=== PATIENT | female | born 1990 | race Caucasian/White ===

== ENCOUNTER → 2018-05-17 | Outpatient (REF) | payer OTHER | LOC: M SFHCLERA 11:02 | PROVIDERS: ATTEND Nurse Practitioner Family | DX: J02.9 Acute pharyngitis, unspecified (principal) ==

== ENCOUNTER → 2020-04-28 | Outpatient (CLI) | payer MEDICAID | LOC: M OUTALCOH 10:29 | PROVIDERS: ATTEND Psychiatry & Neurology Addiction Medicine | DX: F10.20 Alcohol dependence, uncomplicated (principal) ==

== ENCOUNTER → 2020-06-16 | Outpatient (CLI) | payer MEDICAID | LOC: M OUTALCOH 08:32 | PROVIDERS: ATTEND Psychiatry & Neurology Psychiatry | DX: F10.20 Alcohol dependence, uncomplicated (principal) ==

== ENCOUNTER 2020-07-14 08:00 | Outpatient (RCR) | payer MEDICAID | END 2020-07-16 | LOC: M OUTALCOH 08:00 | PROVIDERS: ATTEND Psychiatry & Neurology Psychiatry | DX: F10.20 Alcohol dependence, uncomplicated (principal) ==

== ENCOUNTER 2020-07-31 19:31 | Emergency (ER) | payer MEDICAID, OTHER ==
[~2020-07-31] VITALS: Ht 154.9 cm; Wt 90.9 kg
[2020-07-31] MEDS ORDERED: BUPR150T12 PO (20:55)
[2020-07-31] MEDS ORDERED: GABA-282 PO (20:59)
[2020-07-31] MEDS ORDERED: SERO200T PO (20:59)
[2020-07-31] MEDS ORDERED: LEXA1TAB2 PO (20:59)
[2020-07-31] MEDS ORDERED: VIVI380I IM (20:59)
[2020-07-31] MEDS ORDERED: AMBI10TA PO (20:59)
[2020-07-31] MEDS ORDERED: NALT50TA4 PO (20:59)
--- NOTE | 2020-07-31 22:25 | ECGEPIP ---
[facility] - ED Test Date: 2020-07-31 Pat Name: CORY LAI Department: Room: - Gender: Female [employer] Announcer: linda jones : 1990 Requested By: HENRY CORONA Order Number: [id number] Reading MD: Ashish Duran Measurements Intervals [place] Rate: 58 P: 41 [place]: 170 QRS: 53 QRSD: 82 T: 40 QT: 436 QTc: 428 Interpretive Statements Sinus bradycardia Comparison tracing not on file Electronically Signed on 07-31-2020 22:25:16 EDT by Ashish Duran
[2020-07-31 22:27] LABS: HEMOGLOBIN 9.8 g/dl (12.0-15.5); MEAN CORPUSCULAR HEMOGLOBIN 23.2 pg (27.0-33.0); MEAN CORPUSCULAR HGB CONC 29.7 g/dl (32.0-36.5); MEAN CORPUSCULAR VOLUME 78.2 fl (80.0-96.0); PLATELET COUNT, AUTOMATED 404 10^3/uL (150-450); RED BLOOD COUNT 4.22 10^6/uL (4.00-5.40); WHITE BLOOD COUNT 5.6 10^3/uL (4.0-10.0)
[2020-07-31 22:50] LABS: AMPHETAMINES LEVEL URINE POSITIVE (NEGATIVE); BARBITURATES URINE POSITIVE (NEGATIVE); BENZODIAZEPINES URINE NEGATIVE (NEGATIVE); CANNABINOIDS URINE NEGATIVE (NEGATIVE); COCAINE METABOLITE URINE NEGATIVE (NEGATIVE); METHADONE URINE NEGATIVE (NEGATIVE); OPIATES URINE NEGATIVE (NEGATIVE); PHENCYCLIDINE URINE NEGATIVE (NEGATIVE)
[2020-07-31 23:08] LABS: ACETAMINOPHEN LEVEL < 2.0 UG/ML (10.0-30.0); ALBUMIN 3.8 GM/DL (3.2-5.2); ALT/SGPT 31 U/L (12-78); BILIRUBIN,DIRECT < 0.1 MG/DL (0.0-0.2); BILIRUBIN,TOTAL 0.2 MG/DL (0.2-1.0); BLOOD UREA NITROGEN 8 MG/DL (7-18); CALCIUM LEVEL 8.7 MG/DL (8.5-10.1); CARBON DIOXIDE LEVEL 30 MEQ/L (21-32); CHLORIDE LEVEL 107 MEQ/L (98-107); CREATININE FOR GFR 0.73 MG/DL (0.55-1.30); ETHYL ALCOHOL (ETHANOL) < 0.003 % (0.000-0.010); GLOMERULAR FILTRATION RATE > 60.0 (>60); GLUCOSE, FASTING 88 MG/DL (70-100); POTASSIUM SERUM 4.2 MEQ/L (3.5-5.1); SALICYLATE LEVEL < 1.7 MG/DL (5.0-30.0); SODIUM LEVEL 142 MEQ/L (136-145); TOTAL PROTEIN 6.9 GM/DL (6.4-8.2)
[2020-08-01 00:31] LABS: RSV AMPLIFICATION NEGATIVE (NEGATIVE)
[2020-08-01] MEDS ORDERED: QUEtiapine FUMARATE 200 MG TAB PO ONE (01:05)
[2020-08-01] MEDS ORDERED: ESCITALOPRAM OXALATE 10 MG TAB (LEXAPRO) PO ONE (01:05)
[2020-08-01 02:01] LABS: HCG, SERUM QUALITATIVE NEGATIVE (NEGATIVE)
[2020-08-01 02:48] VITALS: BP 118/62
== END 2020-08-01 02:55 | disposition short-term general hospital (02) ==
LOC: M ED 19:31
DX: F32.9 Major depressive disorder, single episode, unspecified (principal); R45.851 Suicidal ideations; R00.1 Bradycardia, unspecified; F41.9 Anxiety disorder, unspecified; F19.10 Other psychoactive substance abuse, uncomplicated; Z98.84 Bariatric surgery status; Z88.1 Allergy status to other antibiotic agents

== ENCOUNTER → 2020-08-10 | Outpatient (CLI) | payer MEDICAID ==
[~2020-08-10] MED LIST: AMBI10TA PO; BUPR150T12 PO; GABA-282 PO; LEXA1TAB2 PO; NALT50TA4 PO; SERO200T PO; VIVI380I IM
[2020-08-10 14:13] LABS: BASO # 0.1 10^3/uL (0.0-0.2); BASO % 1.1 % (0.0-1.0); EOS # 0.3 10^3/uL (0.0-0.5); EOS % 5.8 % (0.0-3.0); HEMATOCRIT 33.7 % (36.0-47.0); HEMOGLOBIN 9.8 g/dl (12.0-15.5); LYMPH # 1.5 10^3/uL (1.5-5.0); LYMPH % 32.2 % (24.0-44.0); MEAN CORPUSCULAR HEMOGLOBIN 22.8 pg (27.0-33.0); MEAN CORPUSCULAR HGB CONC 29.1 g/dl (32.0-36.5); MEAN CORPUSCULAR VOLUME 78.4 fl (80.0-96.0); MONO # 0.4 10^3/uL (0.0-0.8); MONO % 9.4 % (2.0-8.0); NEUTROPHILS # 2.4 10^3/uL (1.5-8.5); NEUTROPHILS % 51.3 % (36.0-66.0); PLATELET COUNT, AUTOMATED 349 10^3/uL (150-450); WHITE BLOOD COUNT 4.7 10^3/uL (4.0-10.0)
[2020-08-10 14:45] LABS: HCG, SERUM QUALITATIVE NEGATIVE (NEGATIVE)
[2020-08-10 14:49] LABS: ALBUMIN 3.9 GM/DL (3.2-5.2); ALT/SGPT 54 U/L (12-78); BILIRUBIN,DIRECT < 0.1 MG/DL (0.0-0.2); BILIRUBIN,TOTAL 0.2 MG/DL (0.2-1.0); BLOOD UREA NITROGEN 13 MG/DL (7-18); CALCIUM LEVEL 9.2 MG/DL (8.5-10.1); CARBON DIOXIDE LEVEL 26 MEQ/L (21-32); CHLORIDE LEVEL 107 MEQ/L (98-107); CHOLESTEROL LEVEL 218 MG/DL (<200); CHOLESTEROL RISK RATIO 3.694 (<5); CREATININE FOR GFR 0.88 MG/DL (0.55-1.30); GLOMERULAR FILTRATION RATE > 60.0 (>60); GLUCOSE, FASTING 126 MG/DL (70-100); HDL CHOLESTEROL 59 MG/DL (>40); LDL CHOLESTEROL 126 MG/DL (<100); NON-HDL-C 159 MG/DL; POTASSIUM SERUM 4.1 MEQ/L (3.5-5.1); SODIUM LEVEL 138 MEQ/L (136-145); TOTAL PROTEIN 6.9 GM/DL (6.4-8.2); TRIGLYCERIDES LEVEL 164 MG/DL (<150)
== END ==
LOC: M PLALAB 11:07
PROVIDERS: ATTEND Psychiatry & Neurology Psychiatry
DX: F10.20 Alcohol dependence, uncomplicated (principal)

== ENCOUNTER 2020-08-14 13:00 | Outpatient (RCR) | payer MEDICAID | END 2020-08-16 | LOC: M OUTALCOH 13:00 | PROVIDERS: ATTEND Psychiatry & Neurology Psychiatry | DX: F10.20 Alcohol dependence, uncomplicated (principal) ==

== ENCOUNTER 2020-09-14 09:00 | Outpatient (RCR) | payer MEDICAID | END 2020-09-15 | LOC: M OUTALCOH 09:00 | PROVIDERS: ATTEND Psychiatry & Neurology Psychiatry | DX: F10.20 Alcohol dependence, uncomplicated (principal) ==

== ENCOUNTER 2020-10-05 08:45 | Outpatient (RCR) | payer MEDICAID | END 2020-10-16 | LOC: M OUTALCOH 08:45 | PROVIDERS: ATTEND Psychiatry & Neurology Psychiatry | DX: F10.20 Alcohol dependence, uncomplicated (principal) ==

== ENCOUNTER 2020-11-08 14:53 | Outpatient (RCR) | payer MEDICAID | END 2020-11-15 | LOC: M OUTALCOH 14:53 | PROVIDERS: ATTEND Psychiatry & Neurology Psychiatry | DX: F10.20 Alcohol dependence, uncomplicated (principal) ==

== ENCOUNTER 2020-12-09 11:55 | Emergency (ER) | payer MEDICAID ==
[~2020-12-09] VITALS: Ht 154.9 cm; Wt 90.9 kg
[2020-12-09] MEDS ORDERED: LIDVISCBTL TOP ×2 (13:04→13:23)
[2020-12-09] MEDS ORDERED: ACET-683 PO ×2 (13:04→13:23)
[2020-12-09] MEDS ORDERED: IBUP-1022 PO ×2 (13:04→13:23)
[2020-12-09 13:33] VITALS: BP 112/75
== END 2020-12-09 13:33 | disposition home or self-care (01) ==
LOC: M ED 11:55
DX: K02.9 Dental caries, unspecified (principal); K08.89 Other specified disorders of teeth and supporting structures; Z79.899 Other long term (current) drug therapy; Z88.1 Allergy status to other antibiotic agents

== ENCOUNTER 2020-12-13 15:46 | Outpatient (RCR) | payer MEDICAID ==
[~2020-12-13 15:46] MED LIST changes: +ACET-683 PO; +IBUP-1022 PO; +LIDVISCBTL TOP
== END 2020-12-16 ==
LOC: M OUTALCOH 15:46
PROVIDERS: ATTEND Psychiatry & Neurology Psychiatry
DX: F10.20 Alcohol dependence, uncomplicated (principal)

== ENCOUNTER → 2021-09-12 | Outpatient (CLI) | payer MEDICAID, OTHER ==
[~2021-09-12] MED LIST changes: +LAMO100T3; +METO50TA7
== END ==
LOC: M LABSMTC 09:47
PROVIDERS: ATTEND Anesthesiology
DX: Z01.818 Encounter for other preprocedural examination (principal); Z11.52 Encounter for screening for COVID-19

== ENCOUNTER 2021-09-17 06:06 | Day surgery (SDC) | payer OTHER ==
[~2021-09-17] VITALS: Ht 154.9 cm; Wt 93.3 kg
[~2021-09-17 06:06] MED LIST changes: +CLINDAMYCIN 900 MG in IV 1 EA IV ONE; +LIDOCAINE 1% MDV 20ML VIAL SQ PRN; +LR 1,000 ML IV ONE; +dexameTHASONE 4 MG/ML 1ML VIAL (J1100 PER 1MG) IV ONE
[2021-09-17] MEDS ORDERED: CLINDAMYCIN 900 MG in IV 1 EA IV ONE (07:05)
[2021-09-17] MEDS ORDERED: PHENYLEPHRINE 0.5% NASAL SPRAY 15 ML As Ordered ONE (07:11)
[2021-09-17] MEDS ORDERED: MIDAZOLAM INJ 2MG/2ML VIAL (J2250 PER 1MG) As Ordered ONE (07:13)
[2021-09-17] MEDS ORDERED: fentaNYL 250 MCG/5 ML INJECTION As Ordered ONE (07:13)
[2021-09-17] MEDS ORDERED: propofoL 200 MG/20 ML VIAL As Ordered ONE (07:13)
[2021-09-17] MEDS ORDERED: ROCURONIUM BROMIDE 50 MG/5 ML VIAL As Ordered ONE (07:13)
[2021-09-17] MEDS ORDERED: LIDOCAINE 2% 100MG/5ML SDV (FOR ANES.) As Ordered ONE (07:13)
[2021-09-17] MEDS ORDERED: LIDOCAINE 2% W/ EPINEPHRINE 1.7 ML DENTAL INJ As Ordered ONE (07:14)
[2021-09-17] MEDS ORDERED: SCOPOLAMINE 1MG TRANSDERMAL PATCH TOP ONE (07:20)
[2021-09-17] MEDS ORDERED: LIDOCAINE 2% JELLY 5ML TUBE As Ordered ONE (07:26)
[2021-09-17] MEDS ORDERED: PHENYLephrine 500MCG 5ML (100MCG/ML) SYRINGE As Ordered ONE (07:45)
[2021-09-17] MEDS ORDERED: ACETAMINOPHEN 1000MG 100ML IV BTL (OFIRMEV) (J0131 PER 10MG) As Ordered ONE (07:50)
[2021-09-17] MEDS ORDERED: METOCLOPRAMIDE INJ 10MG/2ML VIAL (J2765 PER 1) As Ordered ONE (07:52)
[2021-09-17] MEDS ORDERED: SUGAMMADEX SODIUM 500 MG/5 ML VIAL (BRIDION) As Ordered ONE ×2 (07:52→07:53)
[2021-09-17] MEDS ORDERED: ONDANSETRON 4MG/2ML VIAL As Ordered ONE (07:52)
[2021-09-17] MEDS ORDERED: ePHEDrine SULFATE 25 MG/5 ML(5MG/ML) SYRINGE As Ordered ONE (08:11)
[2021-09-17] MEDS ORDERED: LR 1,000 ML IV SCH (08:55)
[2021-09-17] MEDS ORDERED: PERCOCET 5MG/325MG TAB PO PRN (08:55)
[2021-09-17] MEDS ORDERED: ONDANSETRON 4MG/2ML VIAL IV PRN (08:55)
[2021-09-17] MEDS: fentaNYL 100 MCG/2 ML INJECTION IV PRN ×2 (09:04→09:11)
[2021-09-17 10:24] VITALS: BP 103/68
== END 2021-09-17 10:43 | disposition home or self-care (01) ==
LOC: M SDC 06:06
PROVIDERS: ATTEND Dentist
DX: K02.9 Dental caries, unspecified (principal); I49.5 Sick sinus syndrome; J45.909 Unspecified asthma, uncomplicated; G43.909 Migraine, unspecified, not intractable, without status migrainosus; Z98.84 Bariatric surgery status; E66.9 Obesity, unspecified; Z91.010 Allergy to peanuts; Z88.1 Allergy status to other antibiotic agents; Z79.899 Other long term (current) drug therapy; F41.9 Anxiety disorder, unspecified; F32.9 Major depressive disorder, single episode, unspecified; Z92.21 Personal history of antineoplastic chemotherapy; Z95.0 Presence of cardiac pacemaker
CPT/HCPCS: 81025; 88300; D7210; D9223; J0131; J1100; J2250; J2370; J2405; J2765; J3010

== ENCOUNTER 2022-02-19 00:47 | Emergency (ER) | payer OTHER ==
[~2022-02-19] VITALS: Ht 154.9 cm; Wt 97.9 kg
[~2022-02-19 00:47] MED LIST changes: -CLINDAMYCIN 900 MG in IV 1 EA IV ONE; -LIDOCAINE 1% MDV 20ML VIAL SQ PRN; -LR 1,000 ML IV ONE; -dexameTHASONE 4 MG/ML 1ML VIAL (J1100 PER 1MG) IV ONE
[2022-02-19] MEDS ORDERED: HYDROMORPHONE HCL 0.5 MG/ 0.5 ML SYRINGE (J1170 PER 1) IV PRN (01:40)
[2022-02-19] MEDS ORDERED: ISOVUE-370 76% 100ML VIAL As Ordered ONE (01:44)
[2022-02-19 01:52] VITALS: BP 141/85
[2022-02-19 02:06] LABS: HEMATOCRIT 31.8 % (36.0-47.0); HEMOGLOBIN 9.6 g/dl (12.0-15.5); LYMPH % 21.6 % (24.0-44.0); MEAN CORPUSCULAR HEMOGLOBIN 24.2 pg (27.0-33.0); MEAN CORPUSCULAR HGB CONC 30.2 g/dl (32.0-36.5); MEAN CORPUSCULAR VOLUME 80.3 fl (80.0-96.0); NEUTROPHILS % 69.9 % (36.0-66.0); PLATELET COUNT, AUTOMATED 347 10^3/uL (150-450); RED BLOOD COUNT 3.96 10^6/uL (4.00-5.40); WHITE BLOOD COUNT 7.1 10^3/uL (4.0-10.0)
[2022-02-19 02:07] LABS: BASO # 0.1 10^3/uL (0.0-0.2); BASO % 0.7 % (0.0-1.0); EOS # 0.1 10^3/uL (0.0-0.5); LYMPH # 1.5 10^3/uL (1.5-5.0); MONO # 0.4 10^3/uL (0.0-0.8); MONO % 5.5 % (2.0-8.0); NEUTROPHILS # 4.9 10^3/uL (1.5-8.5)
[2022-02-19 02:42] LABS: RSV AMPLIFICATION NEGATIVE (NEGATIVE)
[2022-02-19 02:49] LABS: INR 0.97; PROTHROMBIN TIME 13.3 SECONDS (12.7-14.5)
[2022-02-19 02:57] LABS: ALBUMIN 3.3 GM/DL (3.2-5.2); ALT/SGPT 38 U/L (12-78); AMYLASE 73 U/L (25-115); BILIRUBIN,DIRECT < 0.1 MG/DL (0.0-0.2); BILIRUBIN,TOTAL 0.2 MG/DL (0.2-1.0); BLOOD UREA NITROGEN 13 MG/DL (7-18); CALCIUM LEVEL 8.2 MG/DL (8.5-10.1); CARBON DIOXIDE LEVEL 25 MEQ/L (21-32); CHLORIDE LEVEL 109 MEQ/L (98-107); ETHYL ALCOHOL (ETHANOL) 0.084 % (0.000-0.010); GLOMERULAR FILTRATION RATE > 60.0 (>60); GLUCOSE, FASTING 105 MG/DL (70-100); LIPASE 119 U/L (73-393); POTASSIUM SERUM 3.9 MEQ/L (3.5-5.1); SODIUM LEVEL 140 MEQ/L (136-145); TOTAL PROTEIN 6.6 GM/DL (6.4-8.2)
[2022-02-19 02:59] LABS: CK-MB VALUE MASS < 1.0 NG/ML (<3.6); CPK CREATINE PHOSPHOKINASE 79 U/L (26-192); MB/CK RELATIVE INDEX 1.27 (< OR =4)
[2022-02-19] MEDS ORDERED: OXYCODONE/APAP 5MG/325MG(HOME DOSE PACK) PO ONE (04:15)
== END 2022-02-19 06:17 | disposition home or self-care (01) ==
LOC: M ED 00:47 → EDBD 00:47 → M ED 06:17
DX: S42.002A Fracture of unspecified part of left clavicle, initial encounter for closed fracture (principal); V48.5XXA Car driver injured in noncollision transport accident in traffic accident, initial encounter; Z95.0 Presence of cardiac pacemaker; Z98.84 Bariatric surgery status; I48.91 Unspecified atrial fibrillation; I10 Essential (primary) hypertension; Z79.899 Other long term (current) drug therapy; Z88.8 Allergy status to other drugs, medicaments and biological substances; Z91.010 Allergy to peanuts
CPT/HCPCS: 70450; 70486; 71045; 71260; 72125; 73030; 74177; 80047; 80048; 80076; 82077; 82150; 82550; 82553; 83605; 83690; 84484; 84702; 85025; 85610; 85730; 86850; 86900; 86901; 87631; 93005; 93041; 94760; 96374; 99285; J1170; Q9967

== ENCOUNTER 2022-05-02 19:51 | Inpatient (IN) | payer MEDICAID, OTHER ==
[~2022-05-02] VITALS: Ht 154.9 cm; Wt 100.0 kg
[~2022-05-02 19:51] MED LIST changes: -METO50TA7; +METO50TA7 PO
[2022-05-02 20:38] LABS: HEMATOCRIT 35.8 % (36.0-47.0); HEMOGLOBIN 11.2 g/dl (12.0-15.5); MEAN CORPUSCULAR HEMOGLOBIN 24.8 pg (27.0-33.0); MEAN CORPUSCULAR HGB CONC 31.3 g/dl (32.0-36.5); MEAN CORPUSCULAR VOLUME 79.2 fl (80.0-96.0); PLATELET COUNT, AUTOMATED 346 10^3/uL (150-450); RED BLOOD COUNT 4.52 10^6/uL (4.00-5.40); WHITE BLOOD COUNT 6.3 10^3/uL (4.0-10.0)
[2022-05-02 21:00] LABS: AMPHETAMINES LEVEL URINE NEGATIVE (NEGATIVE); BARBITURATES URINE NEGATIVE (NEGATIVE); BENZODIAZEPINES URINE NEGATIVE (NEGATIVE); CANNABINOIDS URINE NEGATIVE (NEGATIVE); COCAINE METABOLITE URINE NEGATIVE (NEGATIVE); METHADONE URINE NEGATIVE (NEGATIVE); OPIATES URINE NEGATIVE (NEGATIVE); PHENCYCLIDINE URINE NEGATIVE (NEGATIVE)
[2022-05-02 21:02] LABS: ETHYL ALCOHOL (ETHANOL) 0.208 % (0.000-0.010)
[2022-05-02 21:03] LABS: ACETAMINOPHEN LEVEL < 2.0 UG/ML (10.0-20.0)
[2022-05-02 21:04] LABS: ALBUMIN 3.5 G/DL (3.2-5.2); ALKALINE PHOSPHATASE 135 U/L (46-116); ALT/SGPT 10 U/L (7.0-40); AST/SGOT 19 U/L (<34); BILIRUBIN,DIRECT < 0.1 MG/DL (<0.4); BILIRUBIN,TOTAL 0.2 MG/DL (0.3-1.2); BLOOD UREA NITROGEN 11 MG/DL (9-23); CARBON DIOXIDE LEVEL 20 MMOL/L (20-31); CHLORIDE LEVEL 109 MMOL/L (98-107); CREATININE FOR GFR 0.93 MG/DL (0.55-1.30); GLOMERULAR FILTRATION RATE > 60.0 (>60); GLUCOSE, FASTING 103 MG/DL (60-100); POTASSIUM SERUM 4.2 MMOL/L (3.5-5.1); SALICYLATE LEVEL < 3.0 MG/DL (<30); SODIUM LEVEL 141 MMOL/L (136-145); TOTAL PROTEIN 7.1 G/DL (5.7-8.2)
[2022-05-02 21:06] LABS: THYROID STIMULATING HORMONE 3.242 uIU/ML (0.55-4.78)
[2022-05-02 21:15] LABS: RSV AMPLIFICATION NEGATIVE (NEGATIVE)
[2022-05-02] MEDS ORDERED: ACETAMINOPHEN TAB 650MG DOSE (2X325MG) PO ONE (23:05)
[2022-05-03] MEDS ORDERED: TIZA10TA PO (09:16)
[2022-05-03] MEDS ORDERED: PRAZ1CAP PO (09:16)
[2022-05-03] MEDS ORDERED: BUSP15TA47 PO (09:16)
[2022-05-03] MEDS ORDERED: QUET200T2 PO (09:16)
[2022-05-03] MEDS ORDERED: HOME MED LIST COMPLETE! XX SCH (09:20)
[2022-05-03] MEDS ORDERED: MAALOX 30 ML SUSP *UDC PO PRN (09:30)
[2022-05-03] MEDS ORDERED: ACETAMINOPHEN TAB 650MG DOSE (2X325MG) PO PRN (09:30)
[2022-05-03] MEDS ORDERED: MOM 30ML SUSPENSION UDC PO PRN (09:30)
[2022-05-03] MEDS ORDERED: tiZANidine 4 MG TAB PO PRN (14:45)
[2022-05-03] MEDS: EXCEDRIN MIGRAINE TABLET PO PRN (15:22)
[2022-05-03] MEDS: METOPROLOL TART 50 MG TAB PO SCH (20:14)
[2022-05-03] MEDS: PRAZOSIN 1 MG CAP PO SCH (20:14)
[2022-05-03] MEDS: traZODone 50 MG TAB PO PRN (20:14)
[2022-05-03] MEDS: busPIRone 5 MG TAB PO SCH (20:14)
[2022-05-03] MEDS ORDERED: QUEtiapine FUMARATE 200 MG TAB PO SCH (21:00)
[2022-05-04 06:30] VITALS: BP 113/58
[2022-05-04 06:39] VITALS: BP 113/58
[2022-05-04] MEDS: METOPROLOL TART 50 MG TAB PO SCH ×2 (08:00→20:36)
[2022-05-04] MEDS: EXCEDRIN MIGRAINE TABLET PO PRN ×2 (08:00→18:06)
[2022-05-04] MEDS: busPIRone 5 MG TAB PO SCH ×2 (08:00→20:36)
[2022-05-04] MEDS ORDERED: INFLUENZA QUADRIVALENT PF VACCINE 0.5ML SYRINGE IM.IMMUN ONE (10:00)
[2022-05-04] MEDS ORDERED: diazePAM 2 MG TAB PO PRN (12:25)
[2022-05-04 14:00] VITALS: BP 122/77
[2022-05-04] MEDS ORDERED: LORazepam 2 MG TAB PO PRN (14:00)
[2022-05-04] MEDS: MULTIVITAMINS/MINERALS THERAP 1 TAB PO SCH (15:18)
[2022-05-04] MEDS: FOLIC ACID 1MG TAB PO SCH (15:18)
[2022-05-04] MEDS: ARIPiprazole 2 MG TAB PO SCH (15:18)
[2022-05-04 18:23] VITALS: BP 122/77
[2022-05-04] MEDS: THIAMINE 100 MG TAB PO SCH (20:36)
[2022-05-04] MEDS: NALTREXONE 50 MG TAB PO SCH (20:36)
[2022-05-04 20:55] VITALS: BP 128/80
[2022-05-04] MEDS: PRAZOSIN 1 MG CAP PO SCH (21:11)
[2022-05-04] MEDS: QUEtiapine FUMARATE 100 MG TAB PO SCH (21:11)
[2022-05-04] MEDS: MIRTAZAPINE 15 MG TAB PO SCH (21:11)
[2022-05-05 03:00] VITALS: BP 112/64
[2022-05-05] MEDS: FOLIC ACID 1MG TAB PO SCH (08:26)
[2022-05-05] MEDS: MULTIVITAMINS/MINERALS THERAP 1 TAB PO SCH (08:26)
[2022-05-05] MEDS: THIAMINE 100 MG TAB PO SCH (08:26)
[2022-05-05] MEDS: ARIPiprazole 2 MG TAB PO SCH (08:26)
[2022-05-05] MEDS: busPIRone 5 MG TAB PO SCH ×2 (08:27→21:26)
[2022-05-05] MEDS: METOPROLOL TART 50 MG TAB PO SCH ×2 (08:29→21:25)
[2022-05-05 09:12] LABS: CHOLESTEROL RISK RATIO 2.96 (<5); LDL CHOLESTEROL 88.2 MG/DL (<100)
[2022-05-05 09:30] LABS: HEMOGLOBIN A1c 4.9 % (4.0-6.0)
[2022-05-05] MEDS: FIORICET TAB PO PRN ×2 (13:13→21:25)
[2022-05-05 14:00] VITALS: BP 118/72
[2022-05-05 18:01] VITALS: BP 120/75
[2022-05-05] MEDS: PRAZOSIN 1 MG CAP PO SCH (21:24)
[2022-05-05] MEDS: MIRTAZAPINE 15 MG TAB PO SCH (21:24)
[2022-05-05] MEDS: NALTREXONE 50 MG TAB PO SCH (21:25)
[2022-05-05] MEDS: QUEtiapine FUMARATE 100 MG TAB PO SCH (21:54)
[2022-05-05] MEDS: traZODone 50 MG TAB PO PRN (21:54)
[2022-05-06 06:41] VITALS: BP 122/55
[2022-05-06] MEDS: FOLIC ACID 1MG TAB PO SCH (08:29)
[2022-05-06] MEDS: METOPROLOL TART 50 MG TAB PO SCH ×2 (08:29→21:30)
[2022-05-06] MEDS: MULTIVITAMINS/MINERALS THERAP 1 TAB PO SCH (08:29)
[2022-05-06] MEDS: ARIPiprazole 2 MG TAB PO SCH (08:29)
[2022-05-06] MEDS: busPIRone 5 MG TAB PO SCH ×2 (08:30→21:30)
[2022-05-06 16:09] VITALS: BP 133/74
[2022-05-06] MEDS: NALTREXONE 50 MG TAB PO SCH (21:29)
[2022-05-06] MEDS: QUEtiapine FUMARATE 100 MG TAB PO SCH (23:28)
[2022-05-06] MEDS: PRAZOSIN 1 MG CAP PO SCH (23:28)
[2022-05-06] MEDS: MIRTAZAPINE 15 MG TAB PO SCH (23:28)
[2022-05-06] MEDS: traZODone 50 MG TAB PO PRN (23:29)
[2022-05-07 06:18] VITALS: BP 110/56
[2022-05-07] MEDS: METOPROLOL TART 50 MG TAB PO SCH ×2 (09:08→21:36)
[2022-05-07] MEDS: FOLIC ACID 1MG TAB PO SCH (09:08)
[2022-05-07] MEDS: busPIRone 5 MG TAB PO SCH ×2 (09:08→21:35)
[2022-05-07] MEDS: MULTIVITAMINS/MINERALS THERAP 1 TAB PO SCH (09:08)
[2022-05-07 16:37] VITALS: BP 133/88
[2022-05-07] MEDS: FIORICET TAB PO PRN (17:30)
[2022-05-07] MEDS: NALTREXONE 50 MG TAB PO SCH (21:35)
[2022-05-07] MEDS: PRAZOSIN 1 MG CAP PO SCH (23:03)
[2022-05-07] MEDS: traZODone 50 MG TAB PO PRN (23:03)
[2022-05-07] MEDS: MIRTAZAPINE 15 MG TAB PO SCH (23:03)
[2022-05-08 06:35] VITALS: BP 129/56
[2022-05-08 08:31] VITALS: BP 128/72
[2022-05-08] MEDS: MULTIVITAMINS/MINERALS THERAP 1 TAB PO SCH (08:31)
[2022-05-08] MEDS: METOPROLOL TART 50 MG TAB PO SCH (08:31)
[2022-05-08] MEDS: FOLIC ACID 1MG TAB PO SCH (08:31)
[2022-05-08] MEDS: busPIRone 5 MG TAB PO SCH (08:31)
[2022-05-08] MEDS ORDERED: TRAZ-252 PO (10:11)
[2022-05-08] MEDS ORDERED: ABIL1TAB11 PO (10:11)
[2022-05-08] MEDS ORDERED: BUTA-198 PO (10:11)
[2022-05-08] MEDS ORDERED: MIRT-10 PO (10:11)
[2022-05-08] MEDS ORDERED: VITMTA PO (10:11)
[2022-05-08] MEDS ORDERED: NALT50TA4 PO (10:11)
== END 2022-05-08 13:00 | disposition home or self-care (01) | DRG 751 ==
LOC: M ED 19:51 → M ED INP 05-03 09:29 → M PSY 05-03 13:40
PROVIDERS: ADMIT Psychiatry & Neurology Psychiatry; ATTEND Psychiatry & Neurology Psychiatry
DX: F33.1 Major depressive disorder, recurrent, moderate (principal); F10.20 Alcohol dependence, uncomplicated; F60.3 Borderline personality disorder; G43.909 Migraine, unspecified, not intractable, without status migrainosus; I49.5 Sick sinus syndrome; J45.909 Unspecified asthma, uncomplicated; F60.89 Other specific personality disorders; D50.9 Iron deficiency anemia, unspecified; Z95.0 Presence of cardiac pacemaker; Z90.49 Acquired absence of other specified parts of digestive tract; Z98.84 Bariatric surgery status; Z91.010 Allergy to peanuts; Z79.899 Other long term (current) drug therapy; Z88.1 Allergy status to other antibiotic agents; Z91.51 Personal history of suicidal behavior

== ENCOUNTER 2023-02-21 12:35 | Emergency (ER) | payer MEDICAID, OTHER ==
[~2023-02-21] VITALS: Ht 157.5 cm; Wt 112.4 kg
[~2023-02-21 12:35] MED LIST changes: +ABIL1TAB11 PO; +BUSP15TA47 PO; +BUTA-198 PO; +MIRT-10 PO; +PRAZ1CAP PO; +QUET200T2 PO; +TIZA10TA PO; +TRAZ-252 PO; +VITMTA PO
[2023-02-21] MEDS ORDERED: KETOROLAC 30 MG/ML 1ML VIAL IM ONE (14:40)
[2023-02-21] MEDS ORDERED: ACETAMINOPHEN 500 MG TAB PO ONE (14:40)
[2023-02-21 15:09] VITALS: BP 122/80; TEMP 97.7; O2SAT 100
== END 2023-02-21 15:15 | disposition home or self-care (01) ==
LOC: M ED 12:35
DX: K08.89 Other specified disorders of teeth and supporting structures (principal); Z79.899 Other long term (current) drug therapy
CPT/HCPCS: 99283; J1885